=== PATIENT | male | born 1950 | race Caucasian/White ===

== ENCOUNTER 2016-11-11 09:29 | Observation (INO) | payer MEDICARE ==
[~2016-11-11] VITALS: Ht 177.8 cm; Wt 70.8 kg
[~2016-11-11 09:29] MED LIST: ALPR-475; ASPI-496 PO; BUPR2TAB PO; BUPR2TAB SL; CARI250T PO; CYCL-259 PO; DIAZ2TAB PO; GAMM1POW PO; HYDR-838 PO; KAVA200C PO; LISI-170 PO; LORA1TAB PO; LOSA100T6; NAPR500T3 PO; OXYC-302 PO; TRAM-28 PO; VALE450C2 PO; VENL150C PO; [UNRECOGNIZED DRUG - OTHER] PO; gaba PO
[2016-11-11] MEDS ORDERED: SODIUM CHLORIDE FLUSH 10ML SYR IVF ONE (10:00)
[2016-11-11 10:30] LABS: BLOOD UREA NITROGEN 20 mg/dL (7-18)
[2016-11-11 10:34] LABS: IS PT STATUS REG ER OR PRE ER? YES
[2016-11-11] MEDS ORDERED: POLYETHYLENE GLYCOL 17 GM PACKET PO PRN (12:30)
[2016-11-11] MEDS ORDERED: ENOXAPARIN 40 MG/0.4 ML SQ SCH (12:30)
[2016-11-11] MEDS ORDERED: MORPHINE SULFATE 4 MG/ML, 1ML IVPush PRN (12:30)
[2016-11-11] MEDS ORDERED: DOCUSATE 100 MG CAPSULE PO PRN (12:30)
[2016-11-11] MEDS ORDERED: HYDROcodone/APAP 5/325 TABLET PO PRN (12:30)
[2016-11-11] MEDS ORDERED: BISACODYL 10 MG SUPP PR PRN (12:30)
[2016-11-11] MEDS ORDERED: SODIUM CHLORIDE 0.9% 1,000 ML IV SCH (12:30)
[2016-11-11] MEDS ORDERED: ACETAMINOPHEN 325 MG TABLET PO PRN (12:30)
[2016-11-11] MEDS ORDERED: ONDANSETRON 2MG/ML, 2ML IVP PRN (12:30)
[2016-11-11] MEDS ORDERED: LABETALOL 5MG/ML, 20ML IV PRN (12:30)
[2016-11-11] MEDS ORDERED: NAPROXEN 500 MG TABLET PO PRN ×2 (12:30→21:00)
[2016-11-11 12:46] VITALS: BP 170/84
[2016-11-11] MEDS ORDERED: LORA-445 PO (13:04)
[2016-11-11] MEDS ORDERED: DOXE25CA PO (13:04)
[2016-11-11] MEDS: NAPROXEN MC SCH ×3 (13:28→22:13)
[2016-11-11 15:24] LABS: IS PT STATUS REG ER OR PRE ER? NO
[2016-11-11 15:25] VITALS: BP 123/70
[2016-11-11] MEDS: LORazepam 0.5MG TABLET PO PRN (17:38)
[2016-11-11 19:24] VITALS: BP 152/86
[2016-11-11] MEDS ORDERED: DOXEPIN 25 MG CAPSULE PO SCH (21:00)
[2016-11-11 22:35] LABS: IS PT STATUS REG ER OR PRE ER? NO
[2016-11-12 01:20] VITALS: BP 98/58
[2016-11-12] MEDS: LORazepam 0.5MG TABLET PO PRN (04:22)
[2016-11-12 05:55] LABS: BLOOD UREA NITROGEN 22 mg/dL (7-18)
[2016-11-12 07:06] VITALS: BP 154/104
[2016-11-12] MEDS ORDERED: REGADENOSON 0.4 MG/5 ML SYRINGE ONE (08:51)
[2016-11-12] MEDS ORDERED: ASPIRIN 81 MG TABLET EC PO SCH (09:00)
[2016-11-12] MEDS ORDERED: BUPRENORPHINE HCL 2 MG SL SCH (09:00)
[2016-11-12] MEDS ORDERED: LISINOPRIL 20 MG TABLET PO SCH (09:00)
[2016-11-12 13:15] VITALS: BP 136/82
== END 2016-11-12 15:04 | disposition home or self-care (01) ==
LOC: ED 10:26 → INTOOBSV 11:41 → EDIP 11:41 → 5SO 12:41 → DCLOUNGE 11-12 14:44
PROVIDERS: ADMIT Hospitalist
DX: R07.89 Other chest pain (principal); I11.9 Hypertensive heart disease without heart failure; I16.0 Hypertensive urgency; F41.9 Anxiety disorder, unspecified; N17.0 Acute kidney failure with tubular necrosis; F10.10 Alcohol abuse, uncomplicated; F17.210 Nicotine dependence, cigarettes, uncomplicated; Z82.49 Family history of ischemic heart disease and other diseases of the circulatory system; Z83.3 Family history of diabetes mellitus
CPT/HCPCS: 36415; 71010; 78452; 80048; 80061; 82040; 84484; 85025; 85610; 85730; 93005; 93017; 96360; 96361; 96372; 99285; A9502; C9898; G0378; J1650; J2785; J7030

== ENCOUNTER 2017-02-23 09:20 | Emergency (ER) | payer MEDICARE ==
[~2017-02-23] VITALS: Ht 177.8 cm; Wt 71.0 kg
[~2017-02-23 09:20] MED LIST changes: +DOXE25CA PO; +LORA-445 PO; -TRAM-28 PO; +TRAM-47 PO
[2017-02-23] MEDS ORDERED: HYDROcodone/APAP 5/325 TABLET ONE (10:27)
[2017-02-23] MEDS ORDERED: DIAZEPAM 5 MG TABLET ONE (10:27)
[2017-02-23 10:35] VITALS: BP 142/88
[2017-02-23] MEDS ORDERED: HYDROcodone/APAP 5/325 TABLET PO ONE (11:00)
[2017-02-23] MEDS ORDERED: DIAZEPAM 5 MG TABLET PO ONE (11:00)
== END 2017-02-23 10:37 | disposition home or self-care (01) ==
LOC: ED 10:20
DX: S16.1XXA Strain of muscle, fascia and tendon at neck level, initial encounter (principal); F17.210 Nicotine dependence, cigarettes, uncomplicated; X58.XXXA Exposure to other specified factors, initial encounter; Y93.89 Activity, other specified; Y92.89 Other specified places as the place of occurrence of the external cause; Y99.9 Unspecified external cause status
CPT/HCPCS: 99283

== ENCOUNTER 2017-08-03 09:55 | Emergency (ER) | payer MEDICARE ==
[~2017-08-03] VITALS: Ht 177.8 cm; Wt 71.4 kg
[~2017-08-03 09:55] MED LIST changes: -NAPR500T3 PO; +NAPR500T4 PO
[2017-08-03] MEDS ORDERED: BUPR-173 PO (10:46)
[2017-08-03 11:57] VITALS: BP 164/79
== END 2017-08-03 12:54 | disposition home or self-care (01) ==
LOC: ED 11:08
DX: S16.1XXA Strain of muscle, fascia and tendon at neck level, initial encounter (principal); S09.90XA Unspecified injury of head, initial encounter; I11.9 Hypertensive heart disease without heart failure; E78.00 Pure hypercholesterolemia, unspecified; E78.5 Hyperlipidemia, unspecified; Z87.891 Personal history of nicotine dependence; W11.XXXA Fall on and from ladder, initial encounter; Y93.89 Activity, other specified; Y92.89 Other specified places as the place of occurrence of the external cause; Y99.9 Unspecified external cause status
CPT/HCPCS: 70450; 72125; 99284

== ENCOUNTER 2018-10-31 14:11 | Emergency (ER) | payer MEDICARE ==
[~2018-10-31] VITALS: Ht 177.8 cm; Wt 73.0 kg
[~2018-10-31 14:11] MED LIST changes: +BUPR-173 PO; +LOSA100T14; -LOSA100T6; +NAPR-685 PO; -NAPR500T4 PO
--- NOTE | 2018-10-31 14:27 | NUR ---
pt bib remsa for suicidal ideations. pt was at bus stop where he stated he wanted to committ suicide by jumping off a bridge. pt stated his girlfriend in a tragic car accident on Thursday. pt stated he has not had any food or much water since Thursday. pt a&ox4 and cooperative. pt up ambulatory and stable on feet. assessment completed. belongings taken and locked in cabinet and room secured. iv started and meds given per md order. pt given water to drink. pt cooperative. pt breathalyzed at 0.000
[2018-10-31] MEDS ORDERED: SODIUM CHLORIDE 0.9% 1,000ML IVBOLUS ONE (14:30)
[2018-10-31] MEDS ORDERED: SODIUM CHLORIDE FLUSH 10ML SYR IVF ONE (14:30)
[2018-10-31 14:58] LABS: BASOPHILS # (AUTO) 0.07 x10^3/uL (0-0.1); BASOPHILS % (AUTO) 1 % (0-1); EOSINOPHILS # (AUTO) 0.19 x10^3/uL (0-0.4); EOSINOPHILS % (AUTO) 2 % (1-7); LYMPHOCYTES % (AUTO) 22 % (22-44); MD NO; MEAN CORPUSCULAR HEMOGLOBIN 30.4 pg (27.5-34.5); MEAN CORPUSCULAR HGB CONC 33.5 g/dL (33.2-36.2); MEAN CORPUSCULAR VOLUME 90.8 fL (81-97); MEAN PLATELET VOLUME 7.5 fL (7.4-10.4); MONOCYTES # (AUTO) 0.58 x10^3/uL (0.2-0.8); MONOCYTES % (AUTO) 7 % (2-9); NEUTROPHILS # (AUTO) 5.24 x10^3/uL (1.8-6.8); NEUTROPHILS % (AUTO) 67 % (42-75); PLATELET COUNT 201 x10^3/uL (130-400); RED BLOOD COUNT 5.19 x10^6/uL (4.38-5.82); RED CELL DISTRIBUTION WIDTH 13.9 % (9.4-14.8)
[2018-10-31 15:00] LABS: ALANINE AMINOTRANSFERASE 76 U/L (12-78); ALBUMIN 3.9 g/dL (3.4-5.0); ANION GAP 9 mmol/L (5-15); CALCIUM 8.7 mg/dL (8.5-10.1); CHLORIDE 109 mmol/L (98-107); CREATININE 1.08 mg/dL (0.7-1.3)
[2018-10-31 15:04] LABS: ALKALINE PHOSPHATASE 74 U/L (45-117); BILIRUBIN,TOTAL 0.5 mg/dL (0.2-1.0); TOTAL PROTEIN 7.8 g/dL (6.4-8.2); TROPONIN I < 0.015 ng/mL (0.000-0.045)
[2018-10-31 15:22] LABS: ACETAMINOPHEN 6 mcg/mL (10-30)
--- NOTE | 2018-10-31 15:22 | NUR ---
2ND EKG DONE AND PRESENTED TO
[2018-10-31 15:23] LABS: SALICYLATE LEVEL < 1.7 mg/dL (2.8-20.0)
[2018-10-31] MEDS ORDERED: QUET300T5 PO (15:49)
[2018-10-31] MEDS ORDERED: BUPR-86 PO (15:50)
--- NOTE | 2018-10-31 16:00 | NUR ---
soc called for consult
--- NOTE | 2018-10-31 16:21 | NUR ---
TELEPSYCH CAM[place] AT BEDSIDE
--- NOTE | 2018-10-31 17:06 | NUR ---
SPOKE WITH DR. MADELAINE HOUSE
--- NOTE | 2018-10-31 17:21 | NUR ---
SOC ON THE LINE
[2018-10-31 17:33] LABS: AMPHETAMINE SCREEN, URINE Negative (Negative); BARBITURATE SCREEN, URINE Negative (Negative); BENZODIAZEPINE SCREEN, URINE Negative (Negative); CANNABINOID SCREEN, URINE Negative (Negative); COCAINE SCREEN, URINE Negative (Negative); METHADONE SCREEN, URINE Negative (Negative); OPIATE SCREEN, URINE Positive (Negative)
--- NOTE | 2018-10-31 18:04 | NUR ---
PACKET FAXED TO [facility], [facility]
--- NOTE | 2018-10-31 18:15 | NUR ---
PER 3E THEY WILL TAKE PT AT 2000
--- NOTE | 2018-10-31 18:47 | NUR ---
EJNNA STANTON [phone] Addendum: 10/31/18 at 1847 by ESTEFANY WRONG PT
--- NOTE | 2018-10-31 18:56 | NUR ---
report given to sheeba prado
--- NOTE | 2018-10-31 18:58 | NUR ---
received report from RUBEN Miranda.
[2018-10-31 19:27] VITALS: BP 132/71
--- NOTE | 2018-10-31 19:28 | NUR ---
report to RUBEN Simmons.
[2018-10-31] MEDS ORDERED: BISACODYL 10 MG SUPP PR PRN (19:30)
[2018-10-31] MEDS ORDERED: LIDODERM 5% PATCH TD PRN (19:30)
[2018-10-31] MEDS ORDERED: DOXEPIN 25 MG CAPSULE PO SCH (21:00)
[2018-10-31] MEDS ORDERED: QUETIAPINE 100MG TABLET PO SCH (21:00)
[2018-11-01] MEDS ORDERED: BUPROPION HCL 75 MG HOMEMEDPO SCH (09:00)
[2018-11-01] MEDS ORDERED: LISINOPRIL 20 MG TABLET PO SCH (09:00)
[2018-11-11] MEDS ORDERED: PANT40TA5 PO (14:23)
[2018-11-11] MEDS ORDERED: SENN-177 PO (14:23)
[2018-11-11] MEDS ORDERED: QUET100T PO (14:23)
[2018-11-11] MEDS ORDERED: DOXE25CA PO (14:23)
[2018-11-11] MEDS ORDERED: SERT100T32 PO (14:23)
[2018-11-11] MEDS ORDERED: LISI-170 PO (14:23)
[2018-11-11] MEDS ORDERED: HYDR-3237 PO (14:23)
[2018-11-11] MEDS ORDERED: QUET25TA7 PO (14:23)
== END 2018-10-31 20:24 ==
LOC: ED 14:56 → EDIP 17:31 → UNDOADMIN 17:31 → ED 20:24
DX: R45.851 Suicidal ideations (principal); F32.9 Major depressive disorder, single episode, unspecified; F09 Unspecified mental disorder due to known physiological condition; E78.5 Hyperlipidemia, unspecified; I11.9 Hypertensive heart disease without heart failure; F17.200 Nicotine dependence, unspecified, uncomplicated
CPT/HCPCS: 36415; 71045; 80053; 80307; 80329; 83880; 84484; 85025; 93005; 99285; J7030; 96360; 96361; G0480

== ENCOUNTER 2020-01-29 10:23 | Emergency (ER) | payer MEDICARE, MEDICAID ==
[~2020-01-29] VITALS: Ht 177.8 cm; Wt 70.0 kg
[~2020-01-29 10:23] MED LIST changes: -ALPR-475; +ALPR0.5T7; +BUPR-86 PO; +HYDR-3237 PO; +PANT40TA6 PO; +QUET100T PO; +QUET25TA7 PO; +QUET300T5 PO; +SENN-177 PO; +SERT100T32 PO
--- NOTE | 2020-01-29 10:55 | NUR ---
PT PLACED IN HOSPITAL GOWN, ON VITALS MONITORS. PT FROM ALF ON [address] [facility]. [id number]. STATED HE IS ABLE TO AMBULATE ON OWN. CALL LIGHT WITHIN REACH.
[2020-01-29] MEDS ORDERED: FAMOTIDINE 20 MG/2 ML IV ONE (11:00)
[2020-01-29] MEDS ORDERED: PANTOPRAZOLE 40 MG IV IV ONE (11:00)
[2020-01-29] MEDS ORDERED: SODIUM CHLORIDE 0.9% 1,000ML IVBOLUS ONE (11:00)
[2020-01-29 11:23] LABS: BASOPHILS # (AUTO) 0.06 x10^3/uL (0-0.1); BASOPHILS % (AUTO) 1 % (0-1); EOSINOPHILS # (AUTO) 0.16 x10^3/uL (0-0.4); EOSINOPHILS % (AUTO) 2 % (1-7); LYMPHOCYTES % (AUTO) 27 % (22-44); MD NO; MEAN CORPUSCULAR HEMOGLOBIN 30.8 pg (27.5-34.5); MEAN CORPUSCULAR HGB CONC 32.7 g/dL (33.2-36.2); MEAN PLATELET VOLUME 8.3 fL (7.4-10.4); MONOCYTES # (AUTO) 0.54 x10^3/uL (0.2-0.8); MONOCYTES % (AUTO) 7 % (2-9); NEUTROPHILS # (AUTO) 5.02 x10^3/uL (1.8-6.8); NEUTROPHILS % (AUTO) 64 % (42-75); PLATELET COUNT 190 x10^3/uL (130-400); RED BLOOD COUNT 5.62 x10^6/uL (4.38-5.82); RED CELL DISTRIBUTION WIDTH 12.8 % (9.4-14.8)
--- NOTE | 2020-01-29 11:30 | NUR ---
pt resting calmly in bed. no stated needs. vss, see charted. iv started, ordered meds and fluids infusing. will continue to monitor .
[2020-01-29 11:34] LABS: ALBUMIN 4.2 g/dL (3.4-5.0); ANION GAP 10 mmol/L (5-15); CALCIUM 9.5 mg/dL (8.5-10.1); CHLORIDE 114 mmol/L (98-107); INTERNATIONAL NORMALIZED RATIO 1.01 (0.93-1.1); PROTHROMBIN TIME 10.7 Seconds (9.6-11.5)
[2020-01-29 11:38] LABS: ALANINE AMINOTRANSFERASE 54 U/L (12-78); ALKALINE PHOSPHATASE 83 U/L (45-117); BILIRUBIN,TOTAL 0.5 mg/dL (0.2-1.0); CREATININE 1.06 mg/dL (0.7-1.3); TOTAL PROTEIN 8.1 g/dL (6.4-8.2)
--- NOTE | 2020-01-29 12:35 | NUR ---
PT CONTINUES TO REST CALMLY IN BED. NO STATED NEEDS. AWAITING CT RESULTS. WILL CONTINUE TO MONITOR.
--- NOTE | 2020-01-29 12:56 | NUR ---
RESULTS ARE UP FOR PT BAD CT. PT UP FOR RECHECK.
[2020-01-29] MEDS ORDERED: CIPROFLOXACIN/PMX 400MG/200ML 200 ML IV ONE (14:00)
[2020-01-29] MEDS ORDERED: METRONIDAZOLE PMX 500MG/100ML 100 ML IV ONE (14:00)
--- NOTE | 2020-01-29 14:12 | NUR ---
PT RESTING CALMLY IN BED. NO STATED NEEDS AT THIS TIME. WILL CONTINUE TO MONITOR.
[2020-01-29] MEDS ORDERED: CIPROFLOXACIN/PMX 400MG/200ML 200 ML ONE (14:15)
[2020-01-29] MEDS ORDERED: METRONIDAZOLE PMX 500MG/100ML 100 ML ONE (15:18)
--- NOTE | 2020-01-29 15:30 | NUR ---
PT ASKING FOR PAIN MEDS FOR LOWER STOMACH. WILL SPEAK WITH ERP. PT 1ST ABX STILL INFUSING. PT HAS CALL LIGHT, WILL CONTINUE TO MONITOR.
[2020-01-29] MEDS ORDERED: DICYCLOMINE 10 MG/ML, 2ML IM ONE (16:00)
[2020-01-29] MEDS ORDERED: DICYCLOMINE 10 MG/ML, 2ML ONE (16:22)
--- NOTE | 2020-01-29 16:25 | NUR ---
WENT IN TO GIVE PT MEDS AND HANG 2ND ABX. PT UP WALKING AROUND ROOM. STATED HE DOESN'T WANT ANYMORE MEDS, HE WANTS TO KNOW WHAT IS GOING ON, WHETHER HE IS GOING TO STAY HERE OR BE DCd. PT MADE AWARE ERP HAS TO MAKE THOSE DECISIONS. WILL ASK ERP TO SPEAK WITH PT. PT SITTING IN CHAIR IN ROOM AT THIS TIME. WILL CONTINUE TO MONITOR.
--- NOTE | 2020-01-29 17:10 | NUR ---
ERP WENT IN TO SPEAK WITH PT. PT ABLE TO AMBULATE TO BATHROOM STEADILY TO PROVIDE STOOL SAMPLE. STOOL WALKED TO LAB. PT ALLOWED ORDERED ABX AND PAIN MED TO BE GIVEN. CALL LIGHT WITHIN REACH. WILL CONTINUE TO MONITOR.
[2020-01-29 17:47] LABS: CLOSTRIDIUM DIFFICILE ANTIGEN NEGATIVE; CLOSTRIDIUM DIFFICILE TOXIN NEGATIVE (Negative)
[2020-01-29 18:09] VITALS: BP 143/67
== END 2020-01-29 18:10 | disposition home or self-care (01) ==
LOC: ED 12:36
DX: A09 Infectious gastroenteritis and colitis, unspecified (principal); R19.7 Diarrhea, unspecified; R00.0 Tachycardia, unspecified; G89.29 Other chronic pain; I11.9 Hypertensive heart disease without heart failure; E78.5 Hyperlipidemia, unspecified; F17.200 Nicotine dependence, unspecified, uncomplicated
CPT/HCPCS: 36415; 74177; 80053; 83690; 85025; 85610; 85730; 86850; 86900; 87324; 89055; 96361; 96365; 96367; 96372; 96375; 99285; C9113; J0500; J0744; J3490; J7030; Q9967

== ENCOUNTER 2020-01-29 11:01 | Emergency (ER) | payer MEDICARE ==
[~2020-01-29 11:01] MED LIST changes: +PANT40TA5 PO; -PANT40TA6 PO
[2020-01-29] MEDS ORDERED: FAMOTIDINE 20 MG/2 ML ONE (11:05)
[2020-01-29] MEDS ORDERED: PANTOPRAZOLE 40 MG IV ONE (11:05)
[2020-01-29] MEDS ORDERED: OMNIPAQUE 350 MG/ML, 100ML BOTTLE ONE (12:00)
== END 2020-01-29 11:08 ==
LOC: ED 11:02
DX: R07.89 Other chest pain (principal); Z53.21 Procedure and treatment not carried out due to patient leaving prior to being seen by health care provider
CPT/HCPCS: Q9967

== ENCOUNTER 2020-06-25 22:11 | Emergency (ER) | payer MEDICAID, MEDICARE ==
[~2020-06-25] VITALS: Ht 177.8 cm; Wt 75.0 kg
[~2020-06-25 22:11] MED LIST changes: -PANT40TA5 PO; +PANT40TA6 PO
[2020-06-25 22:13] VITALS: BP 180/85
[2020-06-26] MEDS ORDERED: LORazepam 1MG TABLET ONE (00:28)
[2020-06-26] MEDS ORDERED: LORazepam 1MG TABLET PO ONE (00:30)
[2020-06-26 00:49] LABS: BASOPHILS % (AUTO) 2 % (0-1); EOSINOPHILS % (AUTO) 8 % (1-7); LYMPHOCYTES % (AUTO) 38 % (22-44); MEAN CORPUSCULAR HEMOGLOBIN 32.4 pg (27.5-34.5); MEAN CORPUSCULAR HGB CONC 35.1 g/dL (33.2-36.2); MEAN PLATELET VOLUME 7.8 fL (7.4-10.4); MONOCYTES % (AUTO) 12 % (2-9); NEUTROPHILS % (AUTO) 40 % (42-75); PLATELET COUNT 183 x10^3/uL (130-400); RED BLOOD COUNT 4.56 x10^6/uL (4.38-5.82); RED CELL DISTRIBUTION WIDTH 12.2 % (9.4-14.8)
[2020-06-26 00:52] LABS: MD NO
[2020-06-26 00:58] LABS: ALANINE AMINOTRANSFERASE 61 U/L (12-78); ALBUMIN 3.7 g/dL (3.4-5.0); ANION GAP 3 mmol/L (5-15); CALCIUM 8.9 mg/dL (8.5-10.1); CHLORIDE 109 mmol/L (98-107)
[2020-06-26 01:04] LABS: ALKALINE PHOSPHATASE 89 U/L (45-117); BILIRUBIN,TOTAL 0.4 mg/dL (0.2-1.0); TOTAL PROTEIN 7.2 g/dL (6.4-8.2); TROPONIN I < 0.015 ng/mL (0.000-0.045)
== END 2020-06-26 02:05 | disposition home or self-care (01) ==
LOC: ED 06-26 01:40
DX: F41.1 Generalized anxiety disorder (principal); R94.31 Abnormal electrocardiogram [ECG] [EKG]; I10 Essential (primary) hypertension; E78.5 Hyperlipidemia, unspecified; E78.00 Pure hypercholesterolemia, unspecified; F17.210 Nicotine dependence, cigarettes, uncomplicated
CPT/HCPCS: 36415; 80053; 80320; 84484; 85025; 93005; 99284; 99406; G0480

== ENCOUNTER 2020-12-14 08:44 | Emergency (ER) | payer MEDICARE, OTHER ==
[~2020-12-14] VITALS: Ht 177.8 cm; Wt 71.5 kg
[~2020-12-14 08:44] MED LIST changes: -CYCL-259 PO; +CYCL10TA2 PO; -OXYC-302 PO; +OXYC1TAB14 PO
[2020-12-14] MEDS ORDERED: KETOROLAC 30 MG/1 ML ONE (09:29)
[2020-12-14] MEDS ORDERED: KETOROLAC 30 MG/1 ML IM ONE (09:30)
--- NOTE | 2020-12-14 09:39 | NUR ---
PT MEDICATED PER ERP ORDER. AWAITING XRAY.
--- NOTE | 2020-12-14 09:48 | NUR ---
PT TO XRAY
[2020-12-14 10:09] VITALS: BP 170/83
--- NOTE | 2020-12-14 10:16 | NUR ---
ALL RESULTS BACK, PT FOR RECHECK. PAIN 0/10.
== END 2020-12-14 11:11 | disposition home or self-care (01) ==
LOC: ED 09:13
DX: S39.012A Strain of muscle, fascia and tendon of lower back, initial encounter (principal); I10 Essential (primary) hypertension; E78.5 Hyperlipidemia, unspecified; E78.00 Pure hypercholesterolemia, unspecified; F17.210 Nicotine dependence, cigarettes, uncomplicated; X58.XXXA Exposure to other specified factors, initial encounter; Y93.89 Activity, other specified; Y92.89 Other specified places as the place of occurrence of the external cause; Y99.8 Other external cause status
CPT/HCPCS: 72110; 96372; 99283; 99406; J1885